=== PATIENT | male | born 1955 | race Caucasian/White ===

== ENCOUNTER 2020-10-29 00:05 | Emergency (ER) | payer MEDICARE, SELFPAY ==
--- NOTE | 2020-10-29 00:30 | ED.NECK ---
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 since then complaining of increased back pain which radiated all the way to the neck no paresthesias no motor weakness very anxious when he arrived complaint: neck pain, upper back pain and other ( low back pain) Onset (ago): day(s) (4) Place: home Severity: moderate Related Data Previous Rx's Medication Instructions Recorded cyclobenzaprine 10 mg PO Q8H #20 tab 10/29/20 oxycodone 5 mg PO Q6H PRN #20 tab 10/29/20 prednisone 40 mg PO DAILY #10 tab 10/29/20 Allergies Allergy/AdvReac Type Severity Reaction Status Date / Time codeine [CODEINE] Allergy Unknown N/V Verified 10/29/20 00:41 ibuprofen [From MOTRIN] Allergy Unknown POOR RENAL Verified 10/29/20 00:41 FUNCTION propoxyphene [From DARVON] Allergy Unknown NAUSEA Verified 10/29/20 00:41 Review of Systems Review of Systems: REVIEW OF SYSTEMS: Pertinent positives and negatives are stated above in the history. GEN: no fevers, chills, fatigue HEENT: no nasal congestion, sore throat, ear pain NEURO: no headache, dizziness, focal weakness PULM: no cough, shortness of breath CV: no chest pain, palpitations, LE edema ABD: no abdominal pain, nausea, vomiting, diarrhea : no dysuria, urgency, frequency SKIN: no rash ROS otherwise negative x 10 PMFSH Past Medical History Surgical History History of back surgery History of kidney surgery Hx of skin graft Social History Social History Advance Directives: No Advance Directives Information Provided: No Physical Exam Vital Signs: Vital Signs: Last Vital Signs Temp 98.4 F 10/29/20 00:41 Pulse 84 10/29/20 00:41 Resp 20 10/29/20 01:43 BP 136/63 10/29/20 00:41 Pulse Ox 96 10/29/20 00:41 Body Mass Index 28.1 Appearance: Alert. Oriented X3. very anxious in moderate distress Eyes: Pupils equal, round and reactive to light. ENT: Pharynx normal. Neck: Normal inspection. diffuse tenderness specially trapezius muscles bilaterally no significant focal midline tenderness no radiation of pain to the upper extremities on turning of the head CVS: Normal heart rate and rhythm. Pulses normal. Respiratory: No respiratory distress. Breath sounds normal. Abdomen: Soft and nontender. back: diffuse tenderness in paraspinal area and midthoracic and lumbar area no focal midline tenderness SLR negative no motor weakness reflexes are normal Skin: Skin warm and dry. Normal skin color. Normal skin turgor. Extremities: No lower extremity edema. Good range of movement Neuro: Oriented X 3. No motor deficit. No sensory deficit. MDM - Neck Pain/Injury MDM Narrative Medical decision making narrative: patient has diffuse neck pain without any clinical spinal cord impingement CT scan of the C-spine shows diffuse arthritic changes in C4 and C5 and C6 will discharge patient home on oxycodone Flexeril and prednisone advised to follow with associate relations specialist Discharge Plan Discharge Clinical Impression: Cervical muscle strain Qualifiers: Encounter type: initial encounter Qualified Code(s): S16.1XXA - Strain of muscle, fascia and tendon at neck level, initial encounter Patient Disposition: Home, Self-Care Instructions: Cervical Strain (ED) Additional Instructions: pain medication as advised apply ice pack follow-up with associate relations specialist Prescriptions: New cyclobenzaprine 10 mg tablet 10 mg PO Q8H Qty: 20 RF: 0 prednisone 20 mg tablet 40 mg PO DAILY Qty: 10 RF: 0 oxycodone 5 mg tablet 5 mg PO Q6H PRN (Reason: pain) Qty: 20 RF: 0
[2020-10-29 00:41] VITALS: BP 136/63; PULSE 84; RESP 16; TEMP 36.9; O2SAT 96; BMI 28.1
--- NOTE | 2020-10-29 01:03 | CT_ITS ---
EXAMINATION: CT CERVICAL SPINE WITHOUT CONTRAST CLINICAL INFORMATION: Atraumatic neck pain COMPARISON: None TECHNIQUE: Multidetector CT imaging of the cervical spine was performed without the use of intravenous contrast. Multiplanar reformats created on an independent workstation were reviewed. This CT examination was performed using dose optimization techniques as appropriate, variously including the following: *Automated exposure control *Adjustment of mA and/or kV according to patient size (this includes techniques or standardized protocols for targeted exams where dose is matched to indication/reason for exam; i.e. extremities or head) *Use of iterative reconstruction technique DLP: 539 mGy-cm FINDINGS: Atlantooccipital alignment is maintained. The vertebral bodies and posterior elements align normally. No acute fracture or subluxation. Vertebral body heights are maintained. Prominent endplate osteophytes present at C4-C5 with accompanying of vertebral arthrosis moderate right and mild left foraminal narrowing, and likely mild central canal stenosis. Small endplate osteophytes present at C6-C7, 2 arthrosis leading to moderate left foraminal narrowing without significant right foraminal narrowing, or central canal stenosis. Minimal endplate osteophytes present throughout the remainder of the cervical spine. Partial ankylosis of the C5-C6 vertebral bodies is present on a degenerative basis. There are degenerative changes at the atlantodens articulation characterized by subchondral sclerosis, subchondral cystic changes and spurring which contact and medial articulating with the basion and associated hypertrophic change. The paraspinal soft tissues are unremarkable. Imaged lung apices demonstrate mild paraseptal emphysema, scattered micronodules measuring [address]/CT cervical spine wo con IMPRESSION: * No acute fracture or subluxation. * Cervical spondylosis as described. * Mild paraseptal emphysema present within the upper lobes with scattered pulmonary nodules measuring 4 mm or less. Recommend dedicated nonemergent CT imaging of the chest for further evaluation findings. At minimum, follow-up CT chest should be performed in 6 months.
[2020-10-29] MEDS: Cyclobenzaprine HCl 10 MG TABLET PO (01:42)
[2020-10-29 01:43] VITALS: RESP 20
[2020-10-29] MEDS: predniSONE 20 MG TABLET 40 MG PO (01:43)
[2020-10-29] MEDS: Morphine Sulfate 10 MG/ML CARTRIDGE IM (01:43)
[2020-10-29 02:44] VITALS: BP 134/57; PULSE 68; RESP 16; O2SAT 95
== END 2020-10-29 02:45 | disposition home or self-care (01) ==
PROVIDERS: Emergency Provider Internal Medicine; PCP Internal Medicine
DX: S16.1XXA Strain of muscle, fascia and tendon at neck level, initial encounter (principal); M54.2 Cervicalgia; T75.00XA Unspecified effects of lightning, initial encounter; Y93.9 Activity, unspecified; Y92.009 Unspecified place in unspecified non-institutional (private) residence as the place of occurrence of the external cause; Y99.9 Unspecified external cause status; Z79.899 Other long term (current) drug therapy
CPT/HCPCS: 72125; 96372; 99284; J2270

== ENCOUNTER 2020-12-31 16:44 | Emergency (ER) | payer MEDICARE, SELFPAY ==
--- NOTE | ~2020-12-31 | XR_ITS ---
EXAMINATION: XR TIB-FIB, RIGHT XR ANKLE, RIGHT CLINICAL INFORMATION: Pain after fall. COMPARISON: None TECHNIQUE: 2 views right tib-fib, 4 views right ankle. FINDINGS: The right tibia and fibula appear normal. There is minimal soft tissue swelling present at the ankle. No fractures are seen. XR/XR ankle RT min 3V IMPRESSION: No evidence of a traumatic injury after fall.
--- NOTE | ~2020-12-31 | XR_ITS ---
EXAMINATION: XR TIB-FIB, RIGHT XR ANKLE, RIGHT CLINICAL INFORMATION: Pain after fall. COMPARISON: None TECHNIQUE: 2 views right tib-fib, 4 views right ankle. FINDINGS: The right tibia and fibula appear normal. There is minimal soft tissue swelling present at the ankle. No fractures are seen. XR/XR tibia fibula RT 2V IMPRESSION: No evidence of a traumatic injury after fall.
[2020-12-31 16:57] VITALS: BP 122/62; PULSE 103; RESP 20; TEMP 36.6; O2SAT 98; BMI 28.6
--- NOTE | 2020-12-31 17:54 | ED_ITS ---
HPI - Extremity Injury (Lower) General Chief Complaint: Extremity Injury, Lower Stated Complaint: r foot pain, inj Time Seen by Provider: 12/31/20 17:13 Source: patient Mode of arrival: ambulatory Limitations: no limitations History of Present Illness HPI Narrative: Patient was exercising on stationary bike tried to get off the bike twisted his right ankle coming down and fell on the floor, patient unable to take steps on his right ankle. Related Data Previous Rx's Medication Instructions Recorded cyclobenzaprine 10 mg PO Q8H #20 tab 10/29/20 oxycodone 5 mg PO Q6H PRN #20 tab 10/29/20 prednisone 40 mg PO DAILY #10 tab 10/29/20 Allergies Allergy/AdvReac Type Severity Reaction Status Date / Time codeine [CODEINE] Allergy Unknown N/V Verified 10/29/20 00:41 ibuprofen [From MOTRIN] Allergy Unknown POOR RENAL Verified 10/29/20 00:41 FUNCTION propoxyphene [From DARVON] Allergy Unknown NAUSEA Verified 10/29/20 00:41 Review of Systems Review of Systems: All other systems are reviewed and are negative Constitutional: Reports as per HPI and Reports no additional constitutional complaints Eyes: Reports as per HPI and Reports no additional eye complaints Reports system reviewed and no additional complaints, except as documented Cardiovascular: Reports as per HPI and Reports no additional cardiovascular complaints Respiratory: Reports as per HPI and Reports no additional respiratory complaints Gastrointestinal: Reports as per HPI and Reports no additional gastrointestinal complaints Genitourinary: Reports no additional female genitourinary complaints Musculoskeletal: Reports no additional musculoskeletal complaints Skin/Breast: Reports system reviewed and no additional complaints, except as docu Psychiatric: Reports no additional psychiatric complaints Endocrine: Reports no additional endocrine complaints Hematologic/Lymphatic: Reports no additional hematologic/lymphatic complaints Allergic/Immunologic: Reports no additional allergic/immunologic complaints Reports system reviewed and no additional complaints, except as documented and Reports Abnormal speech present [facility] Past Medical History Surgical History History of back surgery History of kidney surgery Hx of skin graft Social History Social History Smoking Status: Current every day smoker Use of substances other than those prescribed or required for medical reasons: No Any prior treatment program specific to substance use: No Advance Directives: No Advance Directives Information Provided: No Physical Exam Vital Signs: Vital Signs: Last Vital Signs Temp 98 F 12/31/20 18:00 Pulse 101 H 12/31/20 18:00 Resp 22 H 12/31/20 18:00 BP 132/68 12/31/20 18:00 Pulse Ox 100 12/31/20 18:00 Body Mass Index 28.6 Vital signs have been reviewed as normal and appeared to be correct. Blood pressure normal. Heart rate: Tachycardia (patient in pain). Respiration rate normal. Temperature normal. Oxygen saturation normal. Appearance: Alert. Oriented X3. No acute distress. Head: Normal external exam. Normocephalic. Atraumatic. No Tejada signs noted. No raccoon eyes noted Eyes: PERRLA. EOMI. Conjunctiva and sclera normal. Eyelids normal. ENT: EAC normal. TM's Normal. Pharynx normal. Uvula midline. Moist mucous membranes. No trismus noted. No drooling noted. No muffled voice noted. Neck: Normal inspection. Neck supple. FROM. No adenopathy. Thyroid Normal. No meningeal signs. No neck mass noted. CVS: Normal heart rate and rhythm. Heart sound normal. No murmurs noted. Pulses normal throughout. Respiratory: No respiratory distress. Painless inspiration. Breath sounds normal. No wheezes/rales/rhonchi noted. Chest nontender. No accessory muscle usage noted or decreased air movement noted. Abdomen: Soft and nontender. Bowel sounds normal in all 4 quadrants. No distention noted. No organomegaly noted. No visible injury noted. Back: No CVA tenderness. Full range of motion noted. Skin: Skin warm and dry. Normal skin color. Normal skin turgor. No rashes/lesions/lacerations noted. Extremities: Right ankle exam: Tenderness over lateral malleolus, swelling, no step-off, no deformity, limited range of motion due to pain, unable to bear weight. Neuro: Oriented X 3. No motor deficit. No sensory deficit. Reflexes normal. Course Course Course Narrative: Assessment and plan. 65-year-old male with a right ankle sprain. NSAIDs, ice, ankle splint, follow-up with ortho. MDM - Extremity Injury (Lower) Imaging Data Right ankle/tib fib x-rays: Radiologist's impression: No evidence of traumatic injury after fall. Discharge Plan Discharge Clinical Impression: Ankle sprain and strain Patient Disposition: Home, Self-Care Instructions: Ankle Sprain (ED) Additional Instructions: Elevate your right leg, apply ice to the right ankle, take Tylenol for pain. Prescriptions: No Action cyclobenzaprine 10 mg tablet 10 mg PO Q8H Qty: 20 RF: 0 prednisone 20 mg tablet 40 mg PO DAILY Qty: 10 RF: 0 oxycodone 5 mg tablet 5 mg PO Q6H PRN (Reason: pain) Qty: 20 RF: 0 Referrals: Robbie Barahona MD [Physician] - 2 days
[2020-12-31 18:00] VITALS: BP 132/68; PULSE 101; RESP 22; TEMP 36.6; O2SAT 100
--- NOTE | 2020-12-31 18:06 | PC.NURSE ---
AIRCAST APPLIED TO PATIENTS R FOOT.
[2020-12-31] MEDS: oxyCODONE HCl Immed Release 5 MG TABLET PO (18:11)
== END 2020-12-31 18:40 | disposition home or self-care (01) ==
PROVIDERS: Emergency Provider Emergency Medicine
DX: S93.401A Sprain of unspecified ligament of right ankle, initial encounter (principal); M79.671 Pain in right foot; X50.1XXA Overexertion from prolonged static or awkward postures, initial encounter; Y93.01 Activity, walking, marching and hiking; Y92.9 Unspecified place or not applicable; Y99.9 Unspecified external cause status; F17.200 Nicotine dependence, unspecified, uncomplicated; Z71.6 Tobacco abuse counseling
CPT/HCPCS: 73590; 73610; 99283; 99284

== ENCOUNTER 2021-07-01 15:22 | Emergency (ER) | payer MEDICARE, OTHER, SELFPAY ==
[2021-07-01 16:04] VITALS: BP 169/63; PULSE 73; RESP 20; TEMP 37.1; O2SAT 97; BMI 33.6
[2021-07-01 17:05] LABS: Glucose Urine UA NEG (NEG); Leukocyte Esterase Urine NEG (NEG); Nitrite Urine NEG (NEG); UACC Culture Trigger NO; Urine Blood NEG (NEG); Urine Ketones NEG (NEG); Urine Protein 1+ MG/DL (NEG-TRACE)
[2021-07-01 17:09] LABS: Appearance Urine CLEAR; Color Urine STRAW
[2021-07-01 17:26] LABS: RBC Urine 0-2 /HPF (0); WBC Urine 0 /HPF (0-4)
[2021-07-01 17:33] LABS: MANUAL DIFF FLAG NO
[2021-07-01 17:34] LABS: Basophils Absolute Auto 0.1 X10*3/uL (0.0-0.2); Basophils Percent Auto 0.5 % (0-2); Eosinophils Absolute Auto 1.2 X10*3/uL (0.0-0.4); Eosinophils Percent Auto 11.7 % (0-4); Hematocrit 40.8 % (42-52); Hemoglobin 13.8 g/dl (14.0-18.0); Imm Gran Abs Auto 0.03 X10*3/uL (0.00-0.03); Imm Gran Pct Auto 0.3 % (0.0-0.4); Lymphocytes Absolute Auto 4.2 X10*3/uL (1.2-4.9); Lymphocytes Percent Auto 39.8 % (20-40); Mean Corpuscular HGB Conc 33.8 g/dl (31.0-36.0); Mean Corpuscular Hemoglobin 31.4 pg (27.0-33.0); Mean Corpuscular Volume 92.7 fL (80-98); Mean Platelet Volume 9.5 fL (9.4-12.4); Monocytes Absolute Auto 1.1 X10*3/uL (0.1-1.2); Monocytes Percent Auto 10.1 % (2-11); Neutrophils Absolute Auto 3.9 X10*3/uL (2.0-8.3); Neutrophils Percent Auto 37.6 % (45-73); Platelet Count 287 X10*3/uL (160-400); Red Cell Distribution Width 13.9 % (11.0-16.0); White Blood Count 10.4 X10*3/uL (4.8-10.8)
[2021-07-01 17:58] LABS: Amphetamine Screen Urine Not Detected (Not Detect); Barbiturates, Urine Not Detected (Not Detect); Benzodiazepines Screen Urine Not Detected (Not Detect); Cannabinoid Screen Urine POSITIVE (Not Detect); Cocaine Screen Urine Not Detected (Not Detect); Opiate Screen Urine POSITIVE (Not Detect); Phencyclidine Screen Urine Not Detected (Not Detect)
[2021-07-01 18:03] LABS: Ethanol < 10 mg/dL
[2021-07-01 18:04] LABS: Anion Gap 12 (12-20); Blood Urea Nitrogen 11 mg/dL (9-16); Calcium 10.2 mg/dL (8.4-10.2); Carbon Dioxide 31 mmol/L (22-29); Chloride 101 mmol/L (96-108); Creatinine Clr Calc Pharmacy 75.9; Estimated Glomerular Filt Rate > 60; Glucose Random 126 mg/dL (60-115); Potassium 4.6 mmol/L (3.3-5.1); Sodium 139 mmol/L (135-145)
[2021-07-01 21:01] VITALS: BP 153/76; PULSE 90; RESP 16; TEMP 36.6
--- NOTE | 2021-07-01 21:04 | ED_ITS ---
HPI - General Adult General Chief complaint: General Medical Stated complaint: PSYCH EVAL Time Seen by Provider: 07/01/21 20:16 Source: patient Mode of arrival: ambulatory Limitations: no limitations History of Present Illness HPI narrative: 65-year-old male with a past medical history of opiate use disorder here with complaints of needing medical clearance to go to detox. The patient tells me he was at [facility] in [facility]. He tells me that he had a fall while he was there and was brought to the emergency department. While he was gone his bed was given away. Tells me when he called to return if they told him he needed to have medical clearance as well as a psych evaluation. Is unclear why he needs a psych evaluation. He denies any suicidal thoughts, homicidal thoughts, hallucinations, depression or anxiety. He has no physical complaints. He tells me he snorts heroin daily. He last used 3 bags of heroin this morning at 10:00. Related Data Previous Rx's Medication Instructions Recorded cyclobenzaprine 10 mg tablet 10 mg PO Q8H #20 tab 10/29/20 oxycodone 5 mg tablet 5 mg PO Q6H PRN #20 tab 10/29/20 prednisone 20 mg tablet 40 mg PO DAILY #10 tab 10/29/20 Allergies Allergy/AdvReac Type Severity Reaction Status Date / Time codeine [CODEINE] Allergy Unknown N/V Verified 10/29/20 00:41 ibuprofen [From MOTRIN] Allergy Unknown POOR RENAL Verified 10/29/20 00:41 FUNCTION propoxyphene [From DARVON] Allergy Unknown NAUSEA Verified 10/29/20 00:41 Review of Systems Review of Systems: Yes all other systems are reviewed and are negative Constitutional: Constitutional: Reports no additional constitutional complaints, Denies body ache(s), Denies chills, Denies fever(s), Denies headache(s) and Denies weakness Eyes: Eyes: Reports no additional eye complaints and Denies change in vision ENT: Reports system reviewed and no additional complaints, except as documented, Denies dizziness, Denies headache(s), Denies nasal congestion, Denies nasal discharge and Denies neck pain Cardiovascular: Cardiovascular: Reports no additional cardiovascular complaints, Denies chest pain, Denies leg edema and Denies dyspnea Respiratory: Respiratory: Reports no additional respiratory complaints, Denies cough and Denies dyspnea Gastrointestinal: Gastrointestinal: Reports no additional gastrointestinal complaints, Denies abdominal pain, Denies diarrhea, Denies nausea and Denies vomiting Genitourinary: Genitourinary: Denies urinary incontinence Musculoskeletal: Musculoskeletal: Reports no additional musculoskeletal complaints, Reports back pain, Denies arthralgias, Denies joint swelling, Denies neck pain, Denies numbness and Denies tingling Integumentary/Breasts: Skin/Breast: Reports system reviewed and no additional complaints, except as docu and Denies rash Neurologic: Reports system reviewed and no additional complaints, except as documented, Denies Abnormal speech present, Denies dizziness, Denies headache(s), Denies numbness, Denies tingling and Denies weakness Psychiatric: Psychiatric: Denies anxiety, Denies depression, Denies visual h allucinations, Denies hallucinations, Denies homicidal ideation and Denies suicidal ideation [facility] Past Medical History Attestation statement: The following information was validated with the patient. Source: old records reviewed and nursing notes reviewed Surgical History History of back surgery History of kidney surgery Hx of skin graft Social History Social History Advance Directives: No Advance Directives Information Provided: Yes Physical Exam Vital Signs: Vital Signs: Last Vital Signs Temp 97.8 F 07/01/21 21:01 Pulse 90 07/01/21 21:01 Resp 16 07/01/21 21:01 BP 153/76 H 07/01/21 21:01 Pulse Ox 97 07/01/21 16:04 Body Mass Index 33.6 Const: General: cooperative, healthy appearing, comfortable and no acute distress Orientation/consciousness: patient oriented x3 Limitations: no limitations HENMT: Head: Yes normal to inspection Ears: hearing grossly normal bilaterally General nose exam: Normal external nose present Face and s inus: Yes normal facial exam Mouth: Normal oral and palatal mucosa present Throat: Yes posterior oropharynx normal Eyes: General: appearance normal, both eyes and all related structures Pupils: Equal, round and reactive pupils present Neck: Neck: Yes normal visual inspection Chest: Chest palpation & inspection: normal inspection of the chest Resp: Effort & Inspection: normal respiratory effort Auscultation: clear to auscultation bilaterally Cardio: Rate: regular rate Rhythm: regular rhythm Peripheral pulses: Peripheral pulses 2+ throughout GI: Inspection: Yes normal to inspection Palpation (GI): Soft to palpation and nontender Auscultation: normal bowel sounds Back/Spine/Pelvis: Thoracic/Lumbar Spine: thoracic and lumbar spine normal to inspection Skin: General skin exam: no rashes or lesions noted Neuro: General: patient oriented x3, no focal motor deficits and normal sens ation to monofilament Cranial nerves: Yes CN's II-XII intact bilaterally, Yes Equal, round and reactive pupils present, Yes Bilaterally intact EOM present, Yes Nystagmus not present, Yes Normal facial strength present and Yes Midline tongue present Cognition (Neuro): normal cognition Speech: No Abnormal speech present Gait exam (Neuro): Normal gait present Motor exam (neuro): 5/5 motor strength present throughout Sensory Exam: Normal double simultaneous stimulation for sensation Extrem: General: Yes normal to inspection, Yes no pedal edema and Yes no calf tenderness Course Course Course Narrative: 65-year-old male here with complaints of needing medical clearance to the psych evaluation to go to detox for his opiate use disorder. He denies any suicidal or homicidal thoughts. Last use this morning 10:00. No physical complaints with the exception of some mild withdrawal symptoms. Called and spoke to the intake nurse at [facility]. She tells me that while the patient was there going through withdrawal he had some suicidal statements that he made.. Therefore they feel like he needs a psych evaluation prior to return to detox. I explained I did not feel like the patient needs a crisis evaluation as he is not currently suicidal. She tells me they will not except the patient tonight unless he has a crisis evaluation but would reconsider tomorrow morning. Therefore, I spoke to our care team. The patient tells me tonight he does not want to go to another detox unit but would be willing in the morning. Therefore after discussion with Alicia from the Care Team she recommended the patient be discharged and tomorrow he can call and speak to the Recovery team here for placement, Patient was agreeable to this plan of care. Unfortunately it is too soon for him to receive Suboxone at this time but he is open to this in the future. Reviewed worrisome signs and symptoms of when to return to the emergency department. Comfortable discharge home. Medical Decision Making Medical Records Medical records reviewed: Yes I reviewed the patient's medical records. Lab Data Lab results reviewed: Yes I reviewed the patient's lab results. Result diagrams: 07/01/21 17:29 07/01/21 17:29 Labs: Lab Results 07/01/21 07/01/21 07/01/21 Range/Units 16:27 16:27 17:28 WBC (4.8-10.8) X10*3/uL RBC (4.60-5.80) X10*6/uL Hgb (14.0-18.0) g/dl Hct (42-52) % MCV (80-98) fL MCH (27.0-33.0) pg MCHC (31.0-36.0) g/dl RDW (11.0-16.0) % Plt Count (160-400) X10*3/uL MPV (9.4-12.4) fL Immature Gran % (Auto) (0.0-0.4) % Neut % (Auto) (45-73) % Lymph % (Auto) (20-40) % [place] % (Auto) (2-11) % Eos % (Auto) (0-4) % Baso % (Auto) (0-2) % Lymph # (Auto) (1.2-4.9) X10*3/uL [place] # (Auto) (0.1-1.2) X10*3/uL Eos # (Auto) (0.0-0.4) X10*3/uL Baso # (Auto) (0.0-0.2) X10*3/uL Abs Immat Gran (auto) (0.00-0.03) X10*3/uL Absolute Neuts (auto) (2.0-8.3) X10*3/uL Absolute Nucleated RBC (0.0-0.012) X10*3/uL Nucleated RBC % (auto) (0.0-0.2) /100WBC Sodium (135-145) mmol/L Potassium (3.3-5.1) mmol/L Chloride (96-108) mmol/L Carbon Dioxide (22-29) mmol/L Anion Gap (12-20) BUN (9-16) mg/dL Creatinine (0.5-1.4) mg/dL Estim Creat Clear Calc Estimated GFR Random Glucose (60-115) mg/dL Calcium (8.4-10.2) mg/dL Urine Color STRAW Urine Appearance CLEAR Urine pH 6.0 (5.0-8.0) Ur Specific [place] 1.020 (1.005-1.025) Urine Protein 1+ H (NEG-TRACE) MG/DL Urine Glucose (UA) NEG (NEG) MG/DL Urine Ketones NEG (NEG) MG/DL Urine Blood NEG (NEG) Urine Nitrite NEG (NEG) Ur Leukocyte Esterase NEG (NEG) Urine RBC 0-2 (0) /HPF Urine WBC 0 (0-4) /HPF Ur Squamous Epith Cells NONE /LPF Urine Bacteria NONE /LPF Urine Opiates Screen POSITIVE H (Not Detect) Ur Barbiturates Screen Not Detected (Not Detect) Ur Phencyclidine Scrn Not Detected (Not Detect) Ur Amphetamines Screen Not Detected (Not Detect) U Benzodiazepines Scrn Not Detected (Not Detect) Urine Cocaine Screen Not Detected (Not Detect) U Marijuana (THC) Screen POSITIVE H (Not Detect) Ethyl Alcohol < 10 mg/dL 07/01/21 07/01/21 Range/Units 17:29 17:29 WBC 10.4 (4.8-10.8) X10*3/uL RBC 4.40 L (4.60-5.80) X10*6/uL Hgb 13.8 L (14.0-18.0) g/dl Hct 40.8 L (42-52) % MCV 92.7 (80-98) fL MCH 31.4 (27.0-33.0) pg MCHC 33.8 (31.0-36.0) g/dl RDW 13.9 (11.0-16.0) % Plt Count 287 (160-400) X10*3/uL MPV 9.5 (9.4-12.4) fL Immature Gran % (Auto) 0.3 (0.0-0.4) % Neut % (Auto) 37.6 L (45-73) % Lymph % (Auto) 39.8 (20-40) % [place] % (Auto) 10.1 (2-11) % Eos % (Auto) 11.7 H (0-4) % Baso % (Auto) 0.5 (0-2) % Lymph # (Auto) 4.2 (1.2-4.9) X10*3/uL [place] # (Auto) 1.1 (0.1-1.2) X10*3/uL Eos # (Auto) 1.2 H (0.0-0.4) X10*3/uL Baso # (Auto) 0.1 (0.0-0.2) X10*3/uL Abs Immat Gran (auto) 0.03 (0.00-0.03) X10*3/uL Absolute Neuts (auto) 3.9 (2.0-8.3) X10*3/uL Absolute Nucleated RBC 0.000 (0.0-0.012) X10*3/uL Nucleated RBC % (auto) 0.0 (0.0-0.2) /100WBC Sodium 139 (135-145) mmol/L Potassium 4.6 (3.3-5.1) mmol/L Chloride 101 (96-108) mmol/L Carbon Dioxide 31 H (22-29) mmol/L Anion Gap 12 (12-20) BUN 11 (9-16) mg/dL Creatinine 1.05 (0.5-1.4) mg/dL Estim Creat Clear Calc 75.9 Estimated GFR > 60 Random Glucose 126 H (60-115) mg/dL Calcium 10.2 (8.4-10.2) mg/dL Urine Color Urine Appearance Urine pH (5.0-8.0) Ur Specific [place] (1.005-1.025) Urine Protein (NEG-TRACE) MG/DL Urine Glucose (UA) (NEG) MG/DL Urine Ketones (NEG) MG/DL Urine Blood (NEG) Urine Nitrite (NEG) Ur Leukocyte Esterase (NEG) Urine RBC (0) /HPF Urine WBC (0-4) /HPF Ur Squamous Epith Cells /LPF Urine Bacteria /LPF Urine Opiates Screen (Not Detect) Ur Barbiturates Screen (Not Detect) Ur Phencyclidine Scrn (Not Detect) Ur Amphetamines Screen (Not Detect) U Benzodiazepines Scrn (Not Detect) Urine Cocaine Screen (Not Detect) U Marijuana (THC) Screen (Not Detect) Ethyl Alcohol mg/dL Discharge Plan Discharge Clinical Impression: Opiate use Patient Disposition: Home, Self-Care Instructions: Opioid Use Disorder (ED) Additional Instructions: Tomorrow morning call [facility]. Ask to speak to recovery coordinator. If they are unavailable ask to speak to the care team to help you facilitate obtaining a detox bed Prescriptions: No Action cyclobenzaprine 10 mg tablet 10 mg PO Q8H Qty: 20 RF: 0 prednisone 20 mg tablet 40 mg PO DAILY Qty: 10 RF: 0 oxycodone 5 mg tablet 5 mg PO Q6H PRN (Reason: pain) Qty: 20 RF: 0 Referrals: Physician,Unknown [Primary Care Provider] - 2 days Interventions: ED Discharge Assessment Last Done: 07/01/21 21:02
== END 2021-07-01 21:03 | disposition home or self-care (01) ==
PROVIDERS: Emergency Provider Emergency Medicine
DX: Z02.2 Encounter for examination for admission to residential institution (principal); F11.99 Opioid use, unspecified with unspecified opioid-induced disorder
CPT/HCPCS: 36415; 80048; 80307; 81001; 81003; 82077; 85025; 99283

== ENCOUNTER 2024-10-20 14:23 | Emergency (ER) | payer MEDICARE, SELFPAY ==
[2024-10-20 15:30] VITALS: BMI 26.6
--- NOTE | 2024-10-20 15:30 | ED_ITS ---
HPI - General Adult General Chief complaint: General Medical Stated complaint: Methodone Time Seen by Provider: 10/20/24 16:56 Source: patient and RN notes reviewed Mode of arrival: ambulatory Limitations: no limitations History of Present Illness ED Provider: Anayeli Oneil PA-C HPI narrative: This is a 68-year-old male, with a history of opioid use disorder on methadone who presents emergency department for methadone dosing. Patient not realize that his methadone clinic close at 10:00 a.m. this morning and he missed his dosage. He gets take-home methadone containers, last was seen on 09/21/2024. He is feeling well, no current complaints. No other complaints or concerns at this time. MD complaint: Methadone dose Associated symptoms: denies other symptoms Treatments prior to arrival: none Related Data Previous Rx's ?Medication ?Instructions ?Recorded cyclobenzaprine 10 mg tablet 10 mg PO Q8H #20 tabs 10/29/20 oxycodone 5 mg tablet 5 mg PO Q6H PRN pain #20 tabs 10/29/20 prednisone 20 mg tablet 40 mg (2 x 20 mg) PO DAILY #10 tabs 10/29/20 Allergies Allergy/AdvReac Type Severity Reaction Status Date / Time codeine [CODEINE] Allergy Unknown N/V Verified 10/20/24 15:35 ibuprofen [From MOTRIN] Allergy Unknown POOR RENAL Verified 10/20/24 15:35 FUNCTION propoxyphene [From DARVON] Allergy Unknown NAUSEA Verified 10/20/24 15:35 Review of Systems Review of Systems: Yes all other systems are reviewed and are negative PMFSH Past Medical History Surgical History History of back surgery History of kidney surgery Hx of skin graft Social History Social History Do you have a plan to hurt others: No Plan Physical Exam ED Vital Signs: Vital Signs - 24 hr 10/20/24 15:30 Oxygen Delivery Method Room Air BMI result Body Mass Index 26.6 Const Other: General: Awake, alert, and oriented X3. No acute distress. HEENT: Normal inspection CVS: Normal heart rate and rhythm. Pulses normal. Respiratory: No respiratory distress Skin: Warm, dry, no rashes noted to exposed skin. Normal skin color. Normal skin turgor. Extremities: normal to inspection Neuro: Oriented X 3. No motor deficit. No sensory deficit. Course Course Course Narrative: This is an RME: Additional HPI, ROS, PE not included below will be deferred to primary provider. RME assessment and note performed by: Anayeli Oneil PA-C This is a 33-tapo-pve-male who presents to the ER for methadone dose. He is currently on methadone 126mg daily. Reports that he gets take home bottles of methadone. Plan: Call methadone clinic and receive dose Medical Decision Making Medical Decision Making MDM Narrative: This is a 68-year-old male who presents emergency department for methadone dosing. vital signs within normal limits. Flor Marroquin RN called and confirmed dosage. He presented with all of his take-home bottles, last date was 10/19/2024. He is on methadone 126 mg. This was confirmed at the pharmacy. Patient given dose in department. Given last dose letter. He is feeling well, no current complaints. Advised to follow-up with clinic tomorrow. He understands and agrees with plan. Patient stable for discharge Differential Diagnosis Differential Diagnoses: The differential diagnosis associated with the presentation includes methadone dosing, methadone withdrawal, opioid use disorder Discharge Plan Discharge Clinical Impression: Methadone dependence Patient Disposition: Home, Self-Care Instructions: Opioid Use Disorder (ED) Additional Instructions: You were seen in the emergency department for your methadone dose. You received methadone 126mg in the department today. Please follow-up with your methadone clinic tomorrow. If any new or worsening symptoms occur including but not limited to chest pain or shortness breast, please seek emergent care. Prescriptions: No Action cyclobenzaprine 10 mg tablet 10 mg PO Q8H Qty: 20 0RF prednisone 20 mg tablet 40 mg PO DAILY Qty: 10 0RF oxycodone 5 mg tablet 5 mg PO Q6H PRN (Reason: pain) Qty: 20 0RF Print Language: Nepalese
[2024-10-20] MEDS: methADONE HCl 20 MG/2 ML ORAL.CONC 126 MG PO (16:57)
[2024-10-20 17:06] VITALS: BP 134/59; PULSE 77; RESP 16; TEMP 36.3; O2SAT 98
--- OUTSIDE RECORDS SUMMARY | 2024-10-20 17:08 | XMS_ITS | Continuity of Care Document ---
Author Organization [facility] Address [address] [place] [address]- Care Team Providers Care Turkish Line Attendant Name Role Phone Shaniqua DE LEON, [facility] Primary Care Physician [phone] [id number] Date(s): 08/30/23 - 11/07/23 [facility] [address] [place] [address]- Encounter Diagnosis Lumbar spondylosis(Discharge Diagnosis) - 10/02/23 PVD (peripheral vascular disease)(Discharge Diagnosis) - 10/08/23 Attending Physician: Enrrique Casey MD Admitting Physician: Enrrique Casey MD Referring Physician: Alejandro DE LEON, [facility] Allergies, Adverse Reactions, Alerts Substance Reaction Severity Status NSAIDs had kidney removed Active Medications atorvastatin 40 mg oral tablet 1 tablet = 40 mg, By Mouth, Daily, Maintenance, 08/30/23 8:05:00 EDT, Tablet Start Date: 08/30/23 Status: Ordered cyclobenzaprine 10 mg oral tablet 10 mg, 1, tablet, By Mouth, 3 times a day, PRN, Maintenance, Spasm for spasm, 08/30/23 7:33:00 EDT, Partial fill upon patient request if the prescription is for a schedule II opioid drug. Start Date: 08/30/23 Status: Ordered gabapentin 600 mg oral tablet 0.5 tablet = 300 mg, By Mouth, 3 times a day, takes 0.5 - 1 tablet, Maintenance, 08/30/23 7:37:00 EDT, Tablet, Partial fill upon patient request if the prescription is for a schedule II opioid drug. Start Date: 08/30/23 Status: Ordered lisinopril 10 mg oral tablet 10 mg, 1, tablet, By Mouth, Daily, Maintenance, 08/30/23 8:05:00 EDT Start Date: 08/30/23 Status: Ordered Methadone = 160 mg, By Mouth, Daily, [place], 0 Refills, Maintenance, 08/30/23 7:50:00 EDT Start Date: 08/30/23 Status: Ordered sofosbuvir-velpatasvir 400 mg-100 mg oral tablet 1 tablet, By Mouth, Daily, for treatment of Hepatitis C, Maintenance, 08/30/23 8:03:00 EDT, Tablet Start Date: 08/30/23 Status: Ordered Trulicity Pen 0.75 mg/0.5 mL subcutaneous solution 0.5 mL = 0.75 mg, Subcutaneous Injection, Every week, rotate injection sites, Maintenance, 237:36:00 EDT, Solution Start Date: 08/30/23 Status: Ordered Problem List Condition Confirmation Course Effective Dates Status Health St atus Informant Chronic hepatitis C 1 Confirmed 03/09/19 Active Erectile dysfunction 2 Confirmed 08/24/23 Active Lumbar spondylosis Confirmed Active Obstructive sleep apnea syndrome 3 Confirmed 04/15/17 Active Opioid abuse 4 Confirmed 03/17/22 Active PVD (peripheral vascular disease) Confirmed Active Primary coxarthrosis, bilateral Confirmed 07/05/23 Active Steatosis of liver Confirmed 05/13/23 Active Type 2 diabetes mellitus without complication 5 Confirmed 03/08/23 Active 1Outside Source Comment: Overview: Per pt's report, from previous blood transfusuin 2Outside Source Comment: Overview: Likely 2/2 methadone use. Urology referral placed in 05/2023, pt will call to schedule an appt Lab Results Component Value Date TESTOSTERONE 142 (L) 06/07/2023 3Outside Source Comment: Overview: [facility] Polysomnogram: Date 04/08/2017; Wt 182# SE 10%; SM 28%; REM 0%; RDI 103 (AHI 76), Central apneas 4; Obstructive apneas 12; Mixed apneas 26; hypopneas 1; RERAs 15; average oxygen saturation 96% (lowest 93% - without saturations <88% for 5% or more of study); PLMs 0. [facility] Polysomnogram: Date 12/03/2016; SE 57%; SM 69%; REM 15%; RDI 17 (AHI 6), in REM (RDI 7 - AHI 4), Central apneas 7; Obstructive apneas 9; Mixed apneas 0; hypopneas 12; RERAs 52; average oxygen saturation 92% (lowest 86% - without saturations <88% for 5% or more of study); PLMs 6. [facility] Polysomnogram: Date 04/14/2019; Wt 170#; BMI 27; SE 63%; SM 64%; REM 24%; RDI 82 (AHI 82), REM (RDI 8 - AHI 8), Central [id number]; Obstructive apneas 47; Mixed apneas 102; hypopneas 4; RERAs 0; average oxygen saturation 97% (lowest 93% - without saturations <88% for 5% or more of study); PLMs 1. - Obstructive Sleep Apnea - mild overall and mild in REM; mostly hypopneas with obstructive apneas; no sleep related hypoventilation by 2017 diagnostic. polysomnogram. - Obstructive Sleep Apnea - severe overall and mildin REM; mostly central and mixed apneas; without sleep related hypoventilation by 2019 polysomnogram. 4Outside Source Comment: Overview: Methadone 135mg PO QD 5Outside Source Comment: Last Assessment & Plan: Formatting of this note is different from theoriginal. Lab Results Component Value Date HGBA1C 6.7 (H) 03/08/2023 HGBA1C 6.2 (H) 11/25/2022 HGBA1C 8.9 (H) 03/20/2022 Lab Results Component Value Date NA 137 07/07/2023 K 4.3 07/07/2023 BUN 17 07/07/2023 BUNCREAT SEE NOTE: 07/07/2023 CREATININE 1.06 07/07/2023 EGFR 76 07/07/2023 Lab Results Component Value Date URALBCREAT 15 11/25/2022 The 10-year ASCVD risk score (Nena EASON, et al., 2019) is: 40.3% Lab Results Component Value Date TRIGLYC 100 11/25/2022 CHOL 131 11/25/2022 HDL 45 11/25/2022 LDL 67 11/25/2022 CHOLHDL 2.9 11/25/2022 NONHDL 86 11/25/2022 Repeat A1C today, pt reports fasting BG levels> 250 at times Medication regimen:Trulicity 0.75mg - adjust accordingly. Declined Metformin 2/2 concern about medication Statin therapy: Lipitor 40mg PO QD MOUSTAPHA/ARB: Lisinopril 10mg PO QD PCV completed Monofilament: due DM eye exam: due Diagnosis Diagnosis Type Effective Dates Health Status Clinical Service Informant Lumbar spondylosis Discharge Diagnosis 10/02/23 PVD (peripheral vascular disease) Discharge Diagnosis 10/08/23 Procedures Procedure Date Related Diagnosis Body Site Status Fusion of lumbar spine L4-S1 Completed Social History Social History Type Response Smoking Status Current every day sm oker; Type: Cigarettes entered on: 05/03/17 Sex Patient Care team information Care Team Personnel Name: Sybil Monreal RN Position: [facility] Nurse Member Role: Primary Care Nurse Name: Aaron Mcgovern MD Position: Reference Physician Member Role: PCP Address: Address: [address] [place] [address]- Care Team Related Persons Name: DARRON AGUILAR Address: [address] [place] [address] Name: JESS AGUILAR Address: [address] [place] [address] Name: PALMER NASSAR Address: [address] [place] [address]
--- OUTSIDE RECORDS SUMMARY | 2024-10-20 17:08 | XMS_ITS | Continuity of Care Document ---
Author Organization [facility] Address [address] [place] [address]- Care Team Providers Care Business Analyst Sales Operations Name Role Phone Shaniqua DE LEON, Aaron Primary Care Physician [phone] Encounter [facility] Date(s): 12/15/23 - 01/14/24 [facility] [address] [place], [place] [address] Attending Physician: Yobany Parson Admitting Physician: Yobany Parson Referring Physician: AdmtrYobany Allergies, Adverse Reactions, Alerts Substance Reaction Severity [...] Mouth, Daily, goes to Methadone clinic in [facility], 0 Refills, Maintenance, 08/30/23 7:50:00 EDT Start [...] 5% or more of study); PLMs 6. [facility] Polysomnogram: Date 04/14/2019; Wt 170#; BMI 27; SE 63%; SM 64%; REM 24%; RDI 82 (AHI 82), REM (RDI 8 - AHI 8), Central [id number]; Obstructive apneas 47; Mixed apneas 102; hypopneas [...] 11/25/2022 The 10-year ASCVD risk score (Nena DK, et al., 2019) is: 40.3% Lab Results [...] completed Monofilament: due DM eye exam: due Social History Social History Type Response Smoking Status Current every day sm oker; Type: Cigarettes entered on: 05/03/17 Sex Patient Care team information Care Team Personnel Name: Sybil Monreal RN Position: S AMB Nurse Member Role: Primary Care Nurse Name: Shaniqua DE LEON, Aaron Position: Reference Physician Member Role: PCP Address: Address: [address] [place] [address]- Care Team Related Persons Name: DARRON AGUILAR Address: [address] [place] [address] Name: JESS AGUILAR Address: [address] [place] [address] Name: PALMER NASSAR Address: [address] [place] [address]
--- OUTSIDE RECORDS SUMMARY | 2024-10-20 17:08 | XMS_ITS | Continuity of Care Document ---
Author Organization [facility] Address [address] [place] [address]- Care Team Providers Care Axle Turner Name Role Phone Aaron Mcgovern MD Primary Care Physician [phone] Encounter [facility] Date(s): 12/25/22 - 01/31/[address] [address]- Attending Physician: Valentina Tillman NP Admitting Physician: Layne ALAV, Valentina Referring Physician: Layne AIRFREIGHT OPERATIONS AGENT, Valentina Allergies, Adverse Reactions, Alerts Substance Reaction Severity Status NSAIDs had kidney removed Active Social History Social History Type Response Smoking Status Current every day sm oker; Type: Cigarettes entered on: 05/03/17 Sex Patient Care team information Care Team Personnel Name: Sybil Monreal RN Position: [facility] Nurse Member Role: Primary Care Nurse Name: Aaron Mcgovern MD Position: Reference Physician Member Role: PCP Address: Address: [address] [place] [id number] Care Team Related Persons Name: DARRON AGUILAR Address: [address] [place] [address] Name: JESS AGUILAR Address: [address] [address] Name: PALMER NASSAR Address: [address] [place] [address]
--- OUTSIDE RECORDS SUMMARY | 2024-10-20 17:08 | XMS_ITS | Continuity of Care Document ---
Author Organization [facility] Address [address] [place] [address]- Care Team Providers Care Malt Loader Name Role Phone Aaron Mcgovern MD Primary Care Physician Encounter [facility] [facility] R [id number] Date(s): 08/26/23 - 09/25/23 [facility] [address] [place] [address] Attending Physician: Yobany Parson Admitting Physician: Yobany [...] Mouth, Daily, goes to Methadone clinic in [facility], 0 Refills, Maintenance, 08/30/23 7:50:00 EDT Start [...] EDT, Solution Start Date: 08/30/23 Status: Ordered Social History Social History Type Response Smoking Status Current every day sm oker; Type: Cigarettes entered on: 05/03/17 Sex Patient Care team information Care Team Personnel Name: Sybil Monreal RN Position: S [facility]B Nurse Member Role: Primary Care Nurse Name: Aaron Mcgovern MD Position: Reference Physician Member Role: PCP Address: Address: [address] [place] [id number] Care Team Related Persons Name: DARRON AGUILAR Address: [address] [place] [address] Name: JESS AGUILAR Address: [address] [place] [address] Name: PALMER NASSAR Address: [address] [place] [address]
--- OUTSIDE RECORDS SUMMARY | 2024-10-20 17:08 | XMS_ITS | Continuity of Care Document ---
Author Organization [facility] Address [address] [place] [address]- Care Team Providers Care Reproduction Artist Name Role Phone Aaron Mcgovern MD Primary Care Physician [id number] - 01/14/24 [facility] [address] [place] [address]- Attending Physician: Enrrique Casey MD Admitting Physician: Enrrique Casey MD Referring Physician: Aaron Mcgovern MD Allergies, Adverse Reactions, Alerts Substance Reaction Severity [...] Daily, goes to Methadone clinic in [place] [facility], 0 Refills, Maintenance, 08/30/23 7:50:00 EDT Start [...] 5% or more of study); PLMs 6. [facility] Polysomnogram: Date 04/14/2019; Wt 170#; BMI 27; SE 63%; SM 64%; REM 24%; RDI 82 (AHI 82), REM (RDI 8 - AHI 8), Central [id number]; Obstructive apneas 47; Mixed apneas 102; hypopneas [...] Care team information Care Team Personnel Name: Rah WEBB, Sybil North Position: S AMB Nurse Member Role: Primary Care Nurse Name: Shaniqua DE LEON, Aaron Position: Reference Physician Member Role: PCP Address: Address: [address] [place] [address]- Care Team Related Persons Name: DARRON AGUILAR Address: [address] [place] [address] Name: JESS AGUILAR Address: [address] [place] [address] Name: PALMER NASSAR Address: [address] [place] [address]
--- OUTSIDE RECORDS SUMMARY | 2024-10-20 17:08 | XMS_ITS | Continuity of Care Document ---
Author Organization [facility] Address [address] [place] [address]- Care Team Providers Care Building Mover Name Role Phone Shaniqua DE LEON, Aaron Primary Care Physician Encounter [facility] Date(s): 01/06/22 - 01/07/[address] [address]- Encounter Diagnosis Opiate withdrawal(Final) - 01/07/22 Discharge Disposition: A-D/C AMA Attending Physician: Lorena Aceves MD Admitting Physician: Lorena Aceves MD Referring Physician: Not on Staff, Referring MD Allergies, Adverse Reactions, Alerts Substance Reaction Severity Status NSAIDs had kidney removed Active Medications lisinopril 5 mg oral tablet 1 tablet = 5 mg, By Mouth, Daily, # 30 tablet, 2 Refills, Maintenance, Tablet Start Date: 01/17/13 Stop Date: 04/17/13 Status: Ordered Vital Signs Most recent to oldest [Reference Range]: 1 Oxygen Saturation [94-100 %] 99 % (01/07/22 12:15 AM) Pulse Rate [55-90 bpm] 104 bpm *H* (01/07/22 12:15 AM) Blood Pressure [90-138/55-84 mm Hg] 142/ 88mm Hg *H* (01/07/22 12:15 AM) Respiratory Rate [16-30 br/min] 24 br/mi n (01/07/22 12:15 AM) Temperature [96.8-100.4 DegF] 98 DegF (01/07/22 12:15 AM) Mode of Delivery (Oxygen) Room air (01/07/22 12:15 AM) Blood pressure sites Arm, right (01/07/22 12:15 AM) Temperature Route Oral (01/07/22 12:15 AM) Social History Social History Type Response Smoking Status Current every day paul nolasco; Type: Cigarettes entered on: 05/03/17 Sex
--- OUTSIDE RECORDS SUMMARY | 2024-10-20 17:08 | XMS_ITS | Continuity of Care Document ---
Author Organization [facility] Address [address] [place] [address]- Care Team Providers Care Malariologist Name Role Phone Shaniqua DE LEON, [facility] Primary Care Physician Encounter [facility] Date(s): 11/03/23 - 12/03/23 [facility] [address] [place] [address]- Attending Physician: Yobany Parson Admitting Physician: Yobany Parson Referring Physician: trYobany Allergies, Adverse Reactions, Alerts Substance Reaction Severity [...] Daily, [place] to [place] clinic [place] [facility], 0 Refills, Maintenance, 08/30/23 7:50:00 EDT Start Date: 08/30/23 Status: Ordered sofosbuvir-velpatasvir 400 mg-100 mg oral tablet 1 tablet, By Mouth, Daily, for treatment of Hepatitis C, Maintenance, 08/30/23 8:03:00 EDT, Tablet Start Date: 08/30/23 Status: Ordered Trulicity Pen 0.75 mg/0.5 mL subcutaneous solution 0.5 mL = 0.75 mg, Subcutaneous Injection, Every week, rotate injection sites, Maintenance, :36:00 EDT, Solution Start Date: 08/30/23 Status: Ordered [...] 5% or more of study); PLMs 6. [facility] Polysomnogram: Date 04/14/2019; Wt 170#; BMI 27; SE 63%; SM 64%; REM 24%; RDI 82 (AHI 82), REM (RDI 8 - AHI 8), Central ; Obstructive apneas 47; Mixed apneas 102; hypopneas [...] oker; Type: Cigarettes entered on: 05/03/17 Sex Radiology * Event Display: X-Ray Hip/Groin, Non- BH Authored Date: [id number] Patient Care team information Care Team Personnel Name: Sybil Monreal RN Position: [facility] Nurse Member Role: Primary Care Nurse Name: Shaniqua DE LEON, Aaron Position: Reference Physician Member Role: PCP Address: Address: [address] [place] [address]- Care Team Related Persons Name: DARRON AGUILAR Address: [address] [place] [address] Name: JESS AGUILAR Address: [address] [place] [address] Name: PALMER NASSAR Address: [address] [place] [address]
--- OUTSIDE RECORDS SUMMARY | 2024-10-20 17:08 | XMS_ITS | Continuity of Care Document ---
Author Organization [facility] Address [address] [place] [address]- Care Team Providers Care Video Manager Name Role Phone Aaron Mcgovern MD Primary Care Physician [phone] Encounter [facility] Date(s): 05/13/23 - 06/13/[address] [address] Attending Physician: Erika Marie NP Admitting Physician: Erika Marie NP Referring Physician: Erika Marie NP Allergies, Adverse Reactions, Alerts Substance Reaction Severity Status NSAIDs had kidney removed Active Social History Social History Type Response Smoking Status Current every day sm oker; Type: Cigarettes entered on: 05/03/17 Sex Patient Care team information Care Team Personnel Name: Sybil Monreal RN Position: [facility] Nurse Member Role: Primary Care Nurse Name: Aaron Mcgovern MD Position: Reference Physician Member Role: PCP Address: Address: [address] [place] [address] Care Team Related Persons Name: DARRON AGUILAR Address: [address] [place] [address] Name: JESS AGUILAR Address: [address] [place] [address] Name: PALMER NASSAR Address: [address] [place] [address]
--- OUTSIDE RECORDS SUMMARY | 2024-10-20 17:08 | XMS_ITS | Continuity of Care Document ---
Author Organization [facility] Address [address] [place] [address]- Care Team Providers Care Stitch Burnisher Name Role Phone Shaniqua DE LEON, [facility] Primary Care Physician Encounter [facility] Date(s): 08/30/23 - 12/03/23 [facility] [address] [place] [address]- Attending Physician: Alejandro DE LEON, Jody Admitting Physician: Alejandro DE LEON, Jody Allergies, Adverse Reactions, Alerts Substance Reaction Severity [...] Mouth, Daily, goes to Methadone clinic in [facility], 0 Refills, Maintenance, 08/30/23 7:50:00 EDT Start [...] REM (RDI 8 - AHI 8), Central [id number]; Obstructive apneas 47; Mixed apneas 102; hypopneas [...] Reference Physician Member Role: PCP Address: Address: [address] [place] [address]- Care Team Related Persons Name: DARRON AGUILAR Address: [address] [place] [address] Name: JESS AGUILAR Address: [address] [place] [address] Name: PALMER NASSAR Address: [address] [place] [address]
--- OUTSIDE RECORDS SUMMARY | 2024-10-20 17:08 | XMS_ITS | Continuity of Care Document ---
Author Organization [facility] Address [address] [place] [address]- Care Team Providers Care Pastry Finisher Name Role Phone Aaron Mcgovern MD Primary Care Physician [id number] Date(s): 05/28/23 - 09/25/23 [facility] [address] [address]- Attending Physician: Bridget Klein MD Admitting Physician: Bridget Klein MD Referring Physician: Brady Penn MD Allergies, Adverse Reactions, Alerts Substance Reaction [...] Mouth, Daily, goes to Methadone clinic in [facility], 0 Refills, Maintenance, 08/30/23 7:50:00 EDT Start [...] Reference Physician Member Role: PCP Address: Address: [address] [place] [address]- Care Team Related Persons Name: DARRON AGUILAR Address: [address] [place] [address] Name: JESS AGUILAR Address: [address] [place] [address] Name: PALMER NASSAR Address: [address] [place] [address]
--- OUTSIDE RECORDS SUMMARY | 2024-10-20 17:08 | XMS_ITS | Continuity of Care Document ---
Author Organization [facility] al Address [address] [place] [address]- Care Team Providers Care Store Group Manager Name Role Phone Not on Staff, PCP Primary Care Physician Unavail able Encounter [facility] Date(s): 03/09/22 - 03/09/[address] [id number]- Encounter Diagnosis Leg pain(Final) - 03/09/22 Discharge Disposition: A-D/C Walkout Attending Physician: Not on Staff, Attending MD Admitting Physician: Not on Staff, Admitting MD Referring Physician: Not on Staff, Referring MD Allergies, Adverse Reactions, Alerts Substance Reaction Severity Status NSAIDs had kidney removed Active Medications No Known Medications Vital Signs Most recent to oldest [Reference Range]: 1 Height 170 cm (03/09/22 7:48 AM) Weight 85 kg (03/09/22 7:48 AM) Oxygen Saturation [94-100 %] 99 % (03/09/22 7:48 AM) Pulse Rate [55-90 bpm] 87 bpm (03/09/22 7:48 AM) Blood Pressure [90-138/55-84 mm Hg] 100/ 60mm Hg (03/09/22 7:48 AM) Respiratory Rate [16-30 br/min] 20 br/mi n (03/09/22 7:48 AM) Temperature [96.8-100.4 DegF] 97.5 DegF (03/09/22 7:48 AM) Mode of Delivery (Oxygen) Room air (03/09/22 7:48 AM) Blood pressure sites Arm, left (03/09/22 7:48 AM) Temperature Route Oral (03/09/22 7:48 AM) Dry Weight 85 kg (03/09/22 7:48 AM) Social History Social History Type Response Smoking Status Current every day sm oker; Type: Cigarettes entered on: 05/03/17 Sex
[2024-10-20 17:16] VITALS: BP 134/59; PULSE 77; RESP 16; TEMP 36.3; O2SAT 98
== END 2024-10-20 17:18 | disposition home or self-care (01) ==
PROVIDERS: Emergency Provider Emergency Medicine
DX: F11.20 Opioid dependence, uncomplicated (principal)
CPT/HCPCS: 99282; 99283